=== PATIENT | male | born 1970 | race Caucasian/White ===

== ENCOUNTER 2019-03-02 20:08 | Emergency (ER) | payer MEDICAID ==
[~2019-03-02] VITALS: Ht 177.8 cm; Wt 86.0 kg
[~2019-03-02 20:08] MED LIST: ATOR20TA PO; DIVA250T4 PO; FURO-151 PO; HYDR-3927 PO; INSU100V3 SQ; INSULIN 70/30; LOSA25TA3 PO; METO5SOL19 PO; MULT-1146 PO; NPH,100V SQ; OMEP40CA PO; TRAM150C25 PO; [UNRECOGNIZED DRUG - MIXTURE] SUBCUT
[2019-03-03] MEDS ORDERED: SODIUM CHLORIDE 0.9% 1,000 ML IV ONE (01:42)
[2019-03-03] MEDS ORDERED: KETOROLAC 30MG/ML VIAL IV STA (01:42)
[2019-03-03 01:52] LABS: CHLORIDE 93 mEq/L (98-107)
[2019-03-03 01:57] LABS: EOSINOPHILS % 1.3 % (0.0-5.0); HEMATOCRIT. 37.6 % (42.0-52.0); HEMOGLOBIN. 13.3 g/dL (14.0-18.0); LYMPHOCYTES % 23.9 % (20.0-50.0); MEAN CORPUSCULAR HEMOGLOBIN 31.6 pg (28.0-32.0); MEAN CORPUSCULAR VOLUME 89.5 fL (80.0-94.0); MEAN PLATELET VOLUME 8.6 fl (7.4-10.4); MONOCYTES % 9.6 % (2.0-8.0); NEUTROPHILS % 64.2 % (40.0-76.0); PLATELET 175 x1000/uL (130-400); RED CELL DISTRIBUTION WIDTH 14.1 % (11.6-14.6)
[2019-03-03] MEDS ORDERED: HYDROCODONE/ACETAMINOPHEN 5/325MG TABLET PO ONE (04:00)
[2019-03-03 05:57] VITALS: BP 147/45
== END 2019-03-03 06:04 | disposition home or self-care (01) ==
LOC: ER 20:08
DX: L97.529 Non-pressure chronic ulcer of other part of left foot with unspecified severity (principal); E11.9 Type 2 diabetes mellitus without complications; I10 Essential (primary) hypertension; Z98.890 Other specified postprocedural states; Z79.4 Long term (current) use of insulin; Z79.899 Other long term (current) drug therapy
CPT/HCPCS: 36415; 71045; 73620; 80053; 83605; 84484; 85025; 87040; 93005; 96374; 99284; J1885; J7030; Z7610

== ENCOUNTER 2020-07-20 19:33 | Inpatient (IN) | payer MEDICAID ==
[~2020-07-20] VITALS: Ht 175.3 cm; Wt 79.9 kg
[2020-07-20] MEDS ORDERED: ACETAMINOPHEN 325MG TABLET PO PRN (19:45)
[2020-07-20] MEDS ORDERED: GLUCAGON,HUMAN RECOMBINANT 1MG/VIAL IM PRN (19:45)
[2020-07-20] MEDS ORDERED: ONDANSETRON HCL 4MG/2ML INJ IV PRN (19:45)
[2020-07-20] MEDS ORDERED: HYDRALAZINE 20MG/ML VIAL IV PRN (19:45)
[2020-07-20] MEDS ORDERED: DEXTROSE 50% WATER 50ML SYRINGE IV PRN ×3 (19:45)
[2020-07-20 20:00] VITALS: BP 140/71
[2020-07-20] MEDS: INSULIN LISPRO 100 UNITS/ML SUBCUT SCH (21:00)
[2020-07-20] MEDS ORDERED: BLOOD SUGAR DIAGNOSTIC STRIP TEST SCH (21:00)
[2020-07-20] MEDS ORDERED: ATORVASTATIN CALCIUM 40MG TABLET PO SCH (21:00)
[2020-07-20] MEDS: DIPHENHYDRAMINE 50MG/ML VIAL IV PRN (21:02)
[2020-07-20] MEDS: METOPROLOL TARTRATE 25MG TABLET PO SCH (21:02)
[2020-07-20] MEDS: BLOOD SUGAR DIAGNOSTIC STRIP TEST SCH (21:02)
[2020-07-20] MEDS ORDERED: MAGNESIUM/ALUMINUM HYDROXIDE/SIMETHICONE 30ML UDC PO PRN (21:15)
[2020-07-20] MEDS ORDERED: IPRATROPIUM/ALBUTEROL 0.5-3(2.5)MG/3ML NEB NEB PRN (21:15)
[2020-07-20] MEDS ORDERED: GUAIFENESIN 200MG/10ML SUGAR FREE UDC PO PRN (21:15)
[2020-07-20] MEDS ORDERED: LORAZEPAM 0.5MG TABLET PO PRN (21:15)
[2020-07-20] MEDS ORDERED: ZOLPIDEM TARTRATE 5MG TABLET PO PRN (21:15)
[2020-07-20] MEDS ORDERED: NA PHOS,M-B/NA PHOS,DI-BA ENEMA 118ML PR PRN (21:15)
[2020-07-20] MEDS: HYDROMORPHONE HCL/PF 2MG/ML CPJ IV PRN (21:37)
[2020-07-20 21:53] LABS: BASOPHILS % 1.1 % (0.0-2.0); EOSINOPHILS % 3.1 % (0.0-5.0); HEMATOCRIT. 30.4 % (42.0-52.0); HEMOGLOBIN. 10.6 g/dL (14.0-18.0); LYMPHOCYTES % 31.5 % (20.0-50.0); MEAN CORPUSCULAR HEMOGLOBIN 30.6 pg (28.0-32.0); MEAN CORPUSCULAR VOLUME 87.9 fL (80.0-94.0); MEAN PLATELET VOLUME 8.7 fl (7.4-10.4); MONOCYTES % 14.3 % (2.0-8.0); PLATELET 142 x1000/uL (130-400); RED BLOOD CELL COUNT 3.46 mill/uL (4.7-6.1)
[2020-07-20 22:00] VITALS: BP 162/81
[2020-07-20 23:28] VITALS: BP 140/71
[2020-07-21] VITALS (13 sets, daily range): BP systolic 121–151; BP diastolic 43–91
[2020-07-21] MEDS: NITROGLYCERIN 0.4MG TABLET SL SL PRN ×3 (01:06→01:42)
[2020-07-21] MEDS: HYDROMORPHONE HCL/PF 2MG/ML CPJ IV PRN ×2 (02:44→09:00)
[2020-07-21] MEDS: DIPHENHYDRAMINE 50MG/ML VIAL IV PRN ×4 (03:11→23:28)
[2020-07-21] MEDS: HEPARIN 5000 UNITS/ML VIAL SUBCUT SCH ×3 (06:00→22:00)
[2020-07-21 06:30] LABS: PARTIAL THROMBOPLASTIN TIME 30.5 sec (23.4-31.0); PROTHROMBIN TIME 10.9 sec (9.6-11.0)
[2020-07-21] MEDS: INSULIN LISPRO 100 UNITS/ML SUBCUT SCH ×4 (06:37→21:00)
[2020-07-21] MEDS: BLOOD SUGAR DIAGNOSTIC STRIP TEST SCH ×4 (06:37→21:50)
[2020-07-21 07:13] LABS: CREATINE KINASE MB FRACTION 2.1 ng/mL (0.5-3.6)
[2020-07-21 07:20] LABS: EOSINOPHILS % 3.8 % (0.0-5.0); HEMATOCRIT. 28.9 % (42.0-52.0); LYMPHOCYTES % 28.1 % (20.0-50.0); MEAN CORPUSCULAR HEMOGLOBIN 30.6 pg (28.0-32.0); MEAN CORPUSCULAR VOLUME 88.3 fL (80.0-94.0); MEAN PLATELET VOLUME 9.1 fl (7.4-10.4); MONOCYTES % 14.2 % (2.0-8.0); NEUTROPHILS % 52.9 % (40.0-76.0); PLATELET 138 x1000/uL (130-400); RED BLOOD CELL COUNT 3.27 mill/uL (4.7-6.1)
[2020-07-21] MEDS: SEVELAMER CARBONATE 800 MG TABLET PO SCH ×3 (07:20→17:20)
[2020-07-21] MEDS ORDERED: NITROGLYCERIN 50MCG/ML 10ML VIAL (CATH LAB) IV ONE (08:22)
[2020-07-21] MEDS ORDERED: NICARDIPINE 100MCG/ML 10ML VIAL (CATH LAB) IV ONE (08:22)
[2020-07-21] MEDS ORDERED: HEPARIN SODIUM 1,000 UNIT/1ML VIAL IV ONE (08:22)
[2020-07-21] MEDS: ISOSORBIDE MONONITRATE 60MG TABLET SR 24HR PO SCH (08:24)
[2020-07-21] MEDS: ASPIRIN 81MG TABLET PO SCH (08:24)
[2020-07-21] MEDS: CLOPIDOGREL 75MG TABLET PO SCH (08:25)
[2020-07-21] MEDS: DOCUSATE SODIUM 100MG CAPSULE PO SCH ×2 (08:29→17:21)
[2020-07-21] MEDS: METOPROLOL TARTRATE 25MG TABLET PO SCH ×2 (08:29→21:50)
[2020-07-21] MEDS: ASCORBIC ACID 500 MG TABLET PO SCH ×2 (08:30→21:50)
[2020-07-21] MEDS: ZINC SULFATE 220 MG ( 50 ) CAPSULE PO SCH (08:30)
[2020-07-21] MEDS: FAMOTIDINE 20MG TABLET PO SCH (08:30)
[2020-07-21] MEDS ORDERED: FENTANYL CITRATE/PF 50MCG/ML 2ML VIAL ONE (09:36)
[2020-07-21] MEDS ORDERED: IODIXANOL 320MG/ML 100 ML BOTTLE IV ONE (09:36)
[2020-07-21] MEDS ORDERED: MIDAZOLAM HCL 2 MG/2 ML VIAL ONE (09:36)
[2020-07-21] MEDS ORDERED: LIDOCAINE HCL 1% 20ML VIAL (Pyxis) INJ ONE (09:37)
[2020-07-21] MEDS ORDERED: HYDROMORPHONE HCL/PF 2MG/ML CPJ IV PRN (10:00)
[2020-07-21] MEDS ORDERED: ATROPINE SULFATE 1MG/10ML SYR IV PRN (10:15)
[2020-07-21] MEDS ORDERED: ONDANSETRON HCL 4MG/2ML INJ IV PRN (10:15)
[2020-07-21] MEDS ORDERED: ACETAMINOPHEN 325MG TABLET PO PRN ×2 (10:15→10:45)
[2020-07-21] MEDS: ATORVASTATIN CALCIUM 10MG TABLET PO SCH (21:50)
[2020-07-22] VITALS (13 sets, daily range): BP systolic 98–152; BP diastolic 24–106
[2020-07-22] MEDS ORDERED: PNEUMOCOCCAL 23-VAL P-SAC VAC 0.5 ML IM ONE (01:00)
[2020-07-22 06:18] LABS: BASOPHILS % 0.9 % (0.0-2.0); EOSINOPHILS % 4.4 % (0.0-5.0); HEMATOCRIT. 29.2 % (42.0-52.0); LYMPHOCYTES % 25.6 % (20.0-50.0); MEAN CORPUSCULAR HEMOGLOBIN 30.3 pg (28.0-32.0); MEAN CORPUSCULAR VOLUME 88.6 fL (80.0-94.0); MEAN PLATELET VOLUME 8.8 fl (7.4-10.4); MONOCYTES % 11.7 % (2.0-8.0); NEUTROPHILS % 57.4 % (40.0-76.0); PLATELET 142 x1000/uL (130-400); RED CELL DISTRIBUTION WIDTH 13.8 % (11.6-14.6)
[2020-07-22] MEDS: BLOOD SUGAR DIAGNOSTIC STRIP TEST SCH ×4 (06:27→20:24)
[2020-07-22 06:34] LABS: PHOSPHORUS 6.6 mg/dL (2.5-4.9)
[2020-07-22] MEDS: HEPARIN 5000 UNITS/ML VIAL SUBCUT SCH ×3 (06:37→21:18)
[2020-07-22] MEDS: INSULIN LISPRO 100 UNITS/ML SUBCUT SCH ×4 (07:20→20:28)
[2020-07-22] MEDS: ISOSORBIDE MONONITRATE 60MG TABLET SR 24HR PO SCH (08:16)
[2020-07-22] MEDS: METOPROLOL TARTRATE 25MG TABLET PO SCH ×2 (08:16→21:16)
[2020-07-22] MEDS: CLOPIDOGREL 75MG TABLET PO SCH (08:28)
[2020-07-22] MEDS: SEVELAMER CARBONATE 800 MG TABLET PO SCH ×4 (08:28→17:11)
[2020-07-22] MEDS: ZINC SULFATE 220 MG ( 50 ) CAPSULE PO SCH (08:28)
[2020-07-22] MEDS: ASPIRIN 81MG TABLET PO SCH (08:28)
[2020-07-22] MEDS: ASCORBIC ACID 500 MG TABLET PO SCH ×2 (08:29→21:16)
[2020-07-22] MEDS: DIPHENHYDRAMINE 50MG/ML VIAL IV PRN ×2 (08:29→17:05)
[2020-07-22] MEDS: FAMOTIDINE 20MG TABLET PO SCH (10:12)
[2020-07-22] MEDS: METOCLOPRAMIDE HCL 5MG TABLET PO SCH ×3 (13:30→21:17)
[2020-07-22] MEDS: ATORVASTATIN CALCIUM 10MG TABLET PO SCH (21:17)
[2020-07-23] VITALS: BP 141/52
[2020-07-23] MEDS: DIPHENHYDRAMINE 50MG/ML VIAL IV PRN ×2 (00:25→07:02)
[2020-07-23 01:55] VITALS: BP 125/50
[2020-07-23 03:58] VITALS: BP 115/67
[2020-07-23 06:23] LABS: EOSINOPHILS % 3.5 % (0.0-5.0); HEMATOCRIT. 32.1 % (42.0-52.0); HEMOGLOBIN. 10.8 g/dL (14.0-18.0); LYMPHOCYTES % 21.1 % (20.0-50.0); MEAN CORPUSCULAR HEMOGLOBIN 29.9 pg (28.0-32.0); MEAN PLATELET VOLUME 8.8 fl (7.4-10.4); MONOCYTES % 11.7 % (2.0-8.0); NEUTROPHILS % 62.7 % (40.0-76.0); PLATELET 158 x1000/uL (130-400); RED BLOOD CELL COUNT 3.61 mill/uL (4.7-6.1); RED CELL DISTRIBUTION WIDTH 14.4 % (11.6-14.6)
[2020-07-23 06:30] VITALS: BP 145/54
[2020-07-23] MEDS: METOCLOPRAMIDE HCL 5MG TABLET PO SCH (06:30)
[2020-07-23] MEDS: HEPARIN 5000 UNITS/ML VIAL SUBCUT SCH (06:30)
[2020-07-23] MEDS: BLOOD SUGAR DIAGNOSTIC STRIP TEST SCH (06:35)
[2020-07-23 06:47] LABS: PHOSPHORUS 5.6 mg/dL (2.5-4.9)
[2020-07-23] MEDS: INSULIN LISPRO 100 UNITS/ML SUBCUT SCH (07:20)
[2020-07-23] MEDS: SEVELAMER CARBONATE 800 MG TABLET PO SCH (07:40)
[2020-07-23] MEDS: ASCORBIC ACID 500 MG TABLET PO SCH (08:53)
[2020-07-23] MEDS: FAMOTIDINE 20MG TABLET PO SCH (08:53)
[2020-07-23] MEDS: DOCUSATE SODIUM 100MG CAPSULE PO SCH (08:53)
[2020-07-23] MEDS: CLOPIDOGREL 75MG TABLET PO SCH (08:54)
[2020-07-23] MEDS: ASPIRIN 81MG TABLET PO SCH (08:54)
[2020-07-23] MEDS: ISOSORBIDE MONONITRATE 60MG TABLET SR 24HR PO SCH (08:56)
[2020-07-23] MEDS: ZINC SULFATE 220 MG ( 50 ) CAPSULE PO SCH (09:02)
[2020-07-23] MEDS: METOPROLOL TARTRATE 25MG TABLET PO SCH (09:02)
== END 2020-07-23 10:12 | disposition home or self-care (01) | DRG 190 ==
LOC: 3WST 19:33
PROVIDERS: ADMIT Internal Medicine; ATTEND Internal Medicine
PROC: 4A023N7 Measurement of Cardiac Sampling and Pressure, Left Heart, Percutaneous Approach (ICD-10-PCS; principal; 2020-07-21)
PROC: B211YZZ Fluoroscopy of Multiple Coronary Arteries using Other Contrast (ICD-10-PCS; 2020-07-21)
PROC: B215YZZ Fluoroscopy of Left Heart using Other Contrast (ICD-10-PCS; 2020-07-21)
PROC: 5A1D70Z Performance of Urinary Filtration, Intermittent, Less than 6 Hours Per Day (ICD-10-PCS; 2020-07-21)
DX: I21.4 Non-ST elevation (NSTEMI) myocardial infarction (principal); I13.2 Hypertensive heart and chronic kidney disease with heart failure and with stage 5 chronic kidney disease, or end stage renal disease; E11.22 Type 2 diabetes mellitus with diabetic chronic kidney disease; E46 Unspecified protein-calorie malnutrition; I42.9 Cardiomyopathy, unspecified; N18.6 End stage renal disease; E11.51 Type 2 diabetes mellitus with diabetic peripheral angiopathy without gangrene; E87.1 Hypo-osmolality and hyponatremia; I48.0 Paroxysmal atrial fibrillation; D63.8 Anemia in other chronic diseases classified elsewhere; E78.5 Hyperlipidemia, unspecified; I50.9 Heart failure, unspecified; E78.00 Pure hypercholesterolemia, unspecified; I44.0 Atrioventricular block, first degree; I25.110 Atherosclerotic heart disease of native coronary artery with unstable angina pectoris; N25.81 Secondary hyperparathyroidism of renal origin; Z20.822 Contact with and (suspected) exposure to COVID-19; Z68.26 Body mass index [BMI] 26.0-26.9, adult; Z79.899 Other long term (current) drug therapy; Z79.4 Long term (current) use of insulin; I25.2 Old myocardial infarction; Z89.512 Acquired absence of left leg below knee; Z95.5 Presence of coronary angioplasty implant and graft; Z99.2 Dependence on renal dialysis; Z87.891 Personal history of nicotine dependence; Z83.3 Family history of diabetes mellitus; Z82.49 Family history of ischemic heart disease and other diseases of the circulatory system
CPT/HCPCS: 36415; 80048; 80061; 82550; 82553; 82962; 83036; 83735; 84100; 84484; 85025; 87426; 90732; 93005; 93306; 93458; 93970; C1760; C1769; C1887; C1893; J1170; J1200; J1644; J2250; J2405; J3010; J3490; J8597; Q9967

== ENCOUNTER 2020-07-26 14:01 | Emergency (ER) | payer MEDICAID ==
[~2020-07-26] VITALS: Ht 170.2 cm; Wt 86.0 kg
[2020-07-26] MEDS ORDERED: ACETAMINOPHEN 325MG TABLET PO ONE (15:30)
[2020-07-26 15:39] LABS: BASOPHILS % 1.8 % (0.0-2.0); EOSINOPHILS % 5.2 % (0.0-5.0); HEMATOCRIT. 28.2 % (42.0-52.0); HEMOGLOBIN. 10.1 g/dL (14.0-18.0); LYMPHOCYTES % 26.6 % (20.0-50.0); MEAN CORPUSCULAR HEMOGLOBIN 31.2 pg (28.0-32.0); MEAN CORPUSCULAR VOLUME 87.5 fL (80.0-94.0); MEAN PLATELET VOLUME 8.2 fl (7.4-10.4); MONOCYTES % 13.2 % (2.0-8.0); NEUTROPHILS % 53.2 % (40.0-76.0); PLATELET 171 x1000/uL (130-400); RED BLOOD CELL COUNT 3.22 mill/uL (4.7-6.1); RED CELL DISTRIBUTION WIDTH 13.9 % (11.6-14.6)
[2020-07-26 15:47] LABS: CHLORIDE 95 mEq/L (98-107)
[2020-07-26] MEDS ORDERED: HYDROCODONE/ACETAMINOPHEN 10/325MG TABLET PO ONE (16:30)
[2020-07-26 16:45] VITALS: BP 137/68
== END 2020-07-26 16:58 | disposition left against medical advice (07) ==
LOC: ER 14:01
DX: R07.89 Other chest pain (principal); E11.22 Type 2 diabetes mellitus with diabetic chronic kidney disease; N18.6 End stage renal disease; I25.2 Old myocardial infarction; Z98.890 Other specified postprocedural states; Z79.4 Long term (current) use of insulin; Z79.899 Other long term (current) drug therapy
CPT/HCPCS: 36415; 71045; 80053; 83880; 84484; 85025; 93005; 99285

== ENCOUNTER 2021-08-30 14:49 | Inpatient (IN) | payer MEDICAID ==
[~2021-08-30] VITALS: Ht 175.3 cm; Wt 82.6 kg
[~2021-08-30 14:49] MED LIST changes: -LOSA25TA3 PO
[2021-08-30] MEDS ORDERED: ASPIRIN 325MG EC TABLET PO ONE (15:45)
[2021-08-30] MEDS ORDERED: MORPHINE SULFATE 4 MG/ML CPJ (NOT FOR IM USE) IV ONE ×2 (15:45→20:15)
[2021-08-30] MEDS ORDERED: DIPHENHYDRAMINE 50MG/ML VIAL IV ONE (16:15)
[2021-08-30 16:23] LABS: BASOPHILS % 1.2 % (0.0-2.0); EOSINOPHILS % 2.8 % (0.0-5.0); HEMATOCRIT. 32.7 % (42.0-52.0); HEMOGLOBIN. 11.3 g/dL (14.0-18.0); LYMPHOCYTES % 32.3 % (20.0-50.0); MEAN CORPUSCULAR HEMOGLOBIN 30.9 pg (28.0-32.0); MEAN CORPUSCULAR VOLUME 89.1 fL (80.0-94.0); MEAN PLATELET VOLUME 8.4 fl (7.4-10.4); NEUTROPHILS % 49.7 % (40.0-76.0); PLATELET 159 x1000/uL (130-400); RED BLOOD CELL COUNT 3.67 mill/uL (4.7-6.1); RED CELL DISTRIBUTION WIDTH 13.6 % (11.6-14.6)
[2021-08-30 16:33] LABS: CHLORIDE 95 mEq/L (98-107)
[2021-08-30] MEDS ORDERED: FUROSEMIDE 20MG/2ML VIAL IVP ONE (19:00)
[2021-08-30] MEDS ORDERED: CLONIDINE 0.1MG TABLET PO PRN (21:15)
[2021-08-30] MEDS ORDERED: ACETAMINOPHEN 325MG TABLET PO PRN ×2 (21:15)
[2021-08-30] MEDS ORDERED: NITROGLYCERIN 0.4MG TABLET SL SL PRN (21:15)
[2021-08-30] MEDS ORDERED: ONDANSETRON HCL 4MG/2ML INJ IV PRN (21:15)
[2021-08-30] MEDS ORDERED: GUAIFENESIN 200MG/10ML SUGAR FREE UDC PO PRN (21:15)
[2021-08-30] MEDS ORDERED: DEXTROSE 50% WATER 50ML SYRINGE IV PRN (21:15)
[2021-08-30] MEDS ORDERED: MAGNESIUM/ALUMINUM HYDROXIDE/SIMETHICONE 30ML UDC PO PRN (21:15)
[2021-08-30] MEDS ORDERED: IPRATROPIUM/ALBUTEROL 0.5-3(2.5)MG/3ML NEB NEB PRN (21:15)
[2021-08-30] MEDS ORDERED: ZOLPIDEM TARTRATE 5MG TABLET PO PRN (21:15)
[2021-08-30] MEDS ORDERED: NALOXONE HCL 0.4MG/ML VIAL IV PRN (21:30)
[2021-08-30] MEDS: DIPHENHYDRAMINE 50MG/ML VIAL IV PRN (22:06)
[2021-08-30] MEDS: ENOXAPARIN 30MG/0.3ML SYR SUBCUT SCH (22:26)
[2021-08-30 23:29] LABS: ETHANOL BLOOD < 10 mg/dL; HDL CHOLESTEROL 33 mg/dL (40-59); LDL CHOLESTEROL 99 mg/dL (5-100)
[2021-08-30 23:35] LABS: CREATINE KINASE MB FRACTION 2.2 ng/mL (0.5-3.6)
[2021-08-31 00:20] VITALS: BP 160/47
[2021-08-31] MEDS: DIPHENHYDRAMINE 50MG/ML VIAL IV PRN ×5 (00:59→22:07)
[2021-08-31] MEDS: TRAMADOL 50MG TABLET PO PRN (05:47)
[2021-08-31] MEDS: BLOOD SUGAR DIAGNOSTIC STRIP TEST SCH ×4 (07:20→21:00)
[2021-08-31] MEDS: INSULIN LISPRO 100 UNITS/ML SUBCUT SCH ×4 (07:50→21:00)
[2021-08-31 08:00] VITALS: BP 149/60
[2021-08-31] MEDS: FAMOTIDINE 20MG TABLET PO SCH (08:38)
[2021-08-31] MEDS: CLOPIDOGREL 75MG TABLET PO SCH (08:38)
[2021-08-31] MEDS: SEVELAMER CARBONATE 800 MG TABLET PO SCH ×3 (08:38→17:58)
[2021-08-31] MEDS: METOPROLOL TARTRATE 25MG TABLET PO SCH ×2 (08:39→21:00)
[2021-08-31] MEDS: ASPIRIN 81MG EC TABLET PO SCH (08:39)
[2021-08-31 11:56] VITALS: BP 164/60
[2021-08-31 15:49] VITALS: BP 132/78
[2021-08-31 18:34] LABS: HEPATITIS B SURFACE ANTIGEN NEGATIVE
[2021-08-31 20:00] VITALS: BP 150/42
[2021-08-31] MEDS: ATORVASTATIN CALCIUM 10MG TABLET PO SCH (22:08)
[2021-08-31] MEDS: ENOXAPARIN 30MG/0.3ML SYR SUBCUT SCH (22:08)
[2021-09-01] VITALS: BP 112/50
[2021-09-01] MEDS: DIPHENHYDRAMINE 50MG/ML VIAL IV PRN ×5 (01:58→21:51)
[2021-09-01 04:00] VITALS: BP_SYST 159; BP_SYST 98; BP_DIAS 51; BP_DIAS 57
[2021-09-01] MEDS: BLOOD SUGAR DIAGNOSTIC STRIP TEST SCH ×4 (05:12→21:51)
[2021-09-01 07:54] VITALS: BP 145/62
[2021-09-01] MEDS: ASPIRIN 81MG EC TABLET PO SCH (08:24)
[2021-09-01] MEDS: SEVELAMER CARBONATE 800 MG TABLET PO SCH ×3 (08:24→17:37)
[2021-09-01] MEDS: CLOPIDOGREL 75MG TABLET PO SCH (08:24)
[2021-09-01] MEDS: METOPROLOL TARTRATE 25MG TABLET PO SCH ×2 (08:24→21:50)
[2021-09-01] MEDS: FAMOTIDINE 20MG TABLET PO SCH (08:24)
[2021-09-01] MEDS: INSULIN LISPRO 100 UNITS/ML SUBCUT SCH ×4 (08:27→21:53)
[2021-09-01] MEDS: DOCUSATE SODIUM 100MG CAPSULE PO PRN (10:02)
[2021-09-01 11:45] VITALS: BP 158/89
[2021-09-01 16:00] VITALS: BP 120/64
[2021-09-01 20:00] VITALS: BP 186/50
[2021-09-01] MEDS: ATORVASTATIN CALCIUM 10MG TABLET PO SCH (21:50)
[2021-09-01] MEDS: ENOXAPARIN 30MG/0.3ML SYR SUBCUT SCH (21:51)
[2021-09-02] VITALS (7 sets, daily range): BP systolic 120–158; BP diastolic 46–98
[2021-09-02] MEDS: DIPHENHYDRAMINE 50MG/ML VIAL IV PRN ×5 (01:57→20:06)
[2021-09-02] MEDS: BLOOD SUGAR DIAGNOSTIC STRIP TEST SCH ×4 (06:02→20:06)
[2021-09-02] MEDS: INSULIN LISPRO 100 UNITS/ML SUBCUT SCH ×4 (07:50→21:00)
[2021-09-02] MEDS: SEVELAMER CARBONATE 800 MG TABLET PO SCH ×4 (08:41→17:50)
[2021-09-02] MEDS: FAMOTIDINE 20MG TABLET PO SCH (08:41)
[2021-09-02] MEDS: ASPIRIN 81MG EC TABLET PO SCH (08:41)
[2021-09-02] MEDS: METOPROLOL TARTRATE 25MG TABLET PO SCH ×2 (08:41→20:06)
[2021-09-02] MEDS: CLOPIDOGREL 75MG TABLET PO SCH (08:41)
[2021-09-02] MEDS ORDERED: NA PHOS,M-B/NA PHOS,DI-BA ENEMA 118ML PR NR (15:00)
[2021-09-02] MEDS ORDERED: LACTULOSE 20G/30ML UDC PO NR (15:00)
[2021-09-02] MEDS: DOCUSATE SODIUM 100MG CAPSULE PO PRN (17:32)
[2021-09-02] MEDS: ATORVASTATIN CALCIUM 10MG TABLET PO SCH (20:06)
[2021-09-02] MEDS: ENOXAPARIN 30MG/0.3ML SYR SUBCUT SCH (22:12)
[2021-09-02] MEDS: TRAMADOL 50MG TABLET PO PRN (23:59)
[2021-09-03] VITALS: BP 178/58
[2021-09-03] MEDS: DIPHENHYDRAMINE 50MG/ML VIAL IV PRN ×2 (00:17→04:18)
[2021-09-03 04:00] VITALS: BP 190/42
[2021-09-03] MEDS: BLOOD SUGAR DIAGNOSTIC STRIP TEST SCH (06:01)
[2021-09-03] MEDS: INSULIN LISPRO 100 UNITS/ML SUBCUT SCH (07:28)
[2021-09-03 08:00] VITALS: BP 141/43
[2021-09-03 09:25] VITALS: BP 154/48
[2021-09-03] MEDS: METOPROLOL TARTRATE 25MG TABLET PO SCH (09:26)
[2021-09-03] MEDS: CLOPIDOGREL 75MG TABLET PO SCH (09:26)
[2021-09-03] MEDS: ASPIRIN 81MG EC TABLET PO SCH (09:26)
[2021-09-03] MEDS: SEVELAMER CARBONATE 800 MG TABLET PO SCH (09:26)
[2021-09-03] MEDS: FAMOTIDINE 20MG TABLET PO SCH (09:27)
[2021-09-03 12:00] VITALS: BP 103/65
== END 2021-09-03 18:08 | disposition home or self-care (01) | DRG 203 ==
LOC: ER 14:49 → 6WST 20:04 → ENRESERV 23:02 → ER 08-31 00:09 → 6WST 08-31 00:20
PROVIDERS: ADMIT Internal Medicine; ATTEND Internal Medicine
PROC: 0JBP0ZZ Excision of Left Lower Leg Subcutaneous Tissue and Fascia, Open Approach (ICD-10-PCS; principal; 2021-08-31)
PROC: 5A1D70Z Performance of Urinary Filtration, Intermittent, Less than 6 Hours Per Day (ICD-10-PCS; 2021-08-31)
DX: M94.0 Chondrocostal junction syndrome [Tietze] (principal); I50.43 Acute on chronic combined systolic (congestive) and diastolic (congestive) heart failure; I42.9 Cardiomyopathy, unspecified; N18.6 End stage renal disease; E87.1 Hypo-osmolality and hyponatremia; D63.1 Anemia in chronic kidney disease; I13.2 Hypertensive heart and chronic kidney disease with heart failure and with stage 5 chronic kidney disease, or end stage renal disease; I25.10 Atherosclerotic heart disease of native coronary artery without angina pectoris; S81.802A Unspecified open wound, left lower leg, initial encounter; K21.9 Gastro-esophageal reflux disease without esophagitis; E11.22 Type 2 diabetes mellitus with diabetic chronic kidney disease; E78.5 Hyperlipidemia, unspecified; Z99.2 Dependence on renal dialysis; I25.2 Old myocardial infarction; Z79.899 Other long term (current) drug therapy; Z89.512 Acquired absence of left leg below knee; X58.XXXA Exposure to other specified factors, initial encounter; Y93.89 Activity, other specified; Y92.89 Other specified places as the place of occurrence of the external cause; Y99.8 Other external cause status; Z91.15 Patient's noncompliance with renal dialysis
CPT/HCPCS: 36415; 71045; 80053; 80061; 80320; 82550; 82553; 82962; 83036; 83605; 83880; 84484; 85025; 86705; 86709; 86803; 87340; 93005; 99285; J1200; J1650; J1815; J1940; J2270; J2405; G0480

== ENCOUNTER 2021-10-19 14:44 | Inpatient (IN) | payer MEDICAID ==
[~2021-10-19] VITALS: Ht 175.3 cm; Wt 82.7 kg
[~2021-10-19 14:44] MED LIST changes: +ASPI-1406 PO; +CLOP75TA15 PO; +FURO40TA5 PO
[2021-10-19 16:51] VITALS: BP 160/78
[2021-10-19] MEDS ORDERED: GUAIFENESIN 200MG/10ML SUGAR FREE UDC PO PRN (17:00)
[2021-10-19] MEDS ORDERED: ACETAMINOPHEN 325MG TABLET PO PRN (17:00)
[2021-10-19] MEDS ORDERED: DEXTROSE 50% WATER 50ML SYRINGE IV PRN (17:00)
[2021-10-19] MEDS ORDERED: MAGNESIUM/ALUMINUM HYDROXIDE/SIMETHICONE 30ML UDC PO PRN (17:00)
[2021-10-19] MEDS ORDERED: IPRATROPIUM/ALBUTEROL 0.5-3(2.5)MG/3ML NEB HHN PRN (17:00)
[2021-10-19] MEDS ORDERED: LORAZEPAM 0.5MG TABLET PO PRN (17:00)
[2021-10-19] MEDS ORDERED: CLONIDINE 0.1MG TABLET PO PRN (17:00)
[2021-10-19] MEDS ORDERED: DIPHENHYDRAMINE 50MG/ML VIAL IV PRN (17:30)
[2021-10-19] MEDS: BLOOD SUGAR DIAGNOSTIC STRIP TEST SCH ×2 (17:38→21:47)
[2021-10-19] MEDS: ONDANSETRON HCL 4MG/2ML INJ IV PRN ×2 (17:45→23:13)
[2021-10-19] MEDS: INSULIN LISPRO 100 UNITS/ML SUBCUT SCH ×2 (17:46→21:38)
[2021-10-19] MEDS: MORPHINE SULFATE 2 MG/ML CPJ (NOT FOR IM USE) IV PRN ×2 (17:46→23:14)
[2021-10-19 18:02] VITALS: BP 155/68
[2021-10-19] MEDS: DIPHENHYDRAMINE 50MG/ML VIAL IV PRN ×2 (18:37→23:14)
[2021-10-19 20:00] VITALS: BP 130/44
[2021-10-19] MEDS: INSULIN GLARGINE 100 UNITS/ML SUBCUT SCH (21:37)
[2021-10-19] MEDS: ATORVASTATIN CALCIUM 20MG TABLET PO SCH (21:46)
[2021-10-19] MEDS: AMLODIPINE 5MG TABLET PO SCH (21:46)
[2021-10-19] MEDS: CARVEDILOL 6.25 MG TABLET PO SCH (21:46)
[2021-10-19] MEDS: NITROGLYCERIN OINT 1GM/INCH UDPKT TD SCH (21:46)
[2021-10-19 21:57] LABS: HEMATOCRIT 24.7 % (42.0-52.0); HEMOGLOBIN 8.5 g/dL (14.0-18.0); MEAN CORPUSCULAR HEMOGLOBIN 31.3 pg (28.0-32.0); MEAN CORPUSCULAR VOLUME 90.9 fL (80.0-94.0); PLATELET 124 x1000/uL (130-400); RED BLOOD CELL COUNT 2.71 mill/uL (4.7-6.1); RED CELL DISTRIBUTION WIDTH 13.5 % (11.6-14.6)
[2021-10-19 22:00] VITALS: BP 92/69
[2021-10-19 22:14] LABS: CHLORIDE 99 mEq/L (98-107)
[2021-10-19 22:39] LABS: HEPATITIS B SURFACE ANTIGEN NEGATIVE
[2021-10-20] VITALS (17 sets, daily range): BP systolic 74–164; BP diastolic 32–84
[2021-10-20] MEDS: DIPHENHYDRAMINE 50MG/ML VIAL IV PRN ×5 (04:14→22:02)
[2021-10-20] MEDS: NITROGLYCERIN OINT 1GM/INCH UDPKT TD SCH ×4 (04:14→22:12)
[2021-10-20] MEDS: MORPHINE SULFATE 2 MG/ML CPJ (NOT FOR IM USE) IV PRN ×5 (04:15→22:03)
[2021-10-20] MEDS: INSULIN LISPRO 100 UNITS/ML SUBCUT SCH ×4 (07:10→20:34)
[2021-10-20] MEDS: BLOOD SUGAR DIAGNOSTIC STRIP TEST SCH ×4 (07:10→20:34)
[2021-10-20] MEDS: ONDANSETRON HCL 4MG/2ML INJ IV PRN ×2 (08:09→18:01)
[2021-10-20] MEDS: AMLODIPINE 5MG TABLET PO SCH ×2 (08:09→20:34)
[2021-10-20] MEDS: ASPIRIN 81MG EC TABLET PO SCH (08:09)
[2021-10-20] MEDS: CARVEDILOL 6.25 MG TABLET PO SCH ×2 (08:10→20:33)
[2021-10-20] MEDS: CLOPIDOGREL 75MG TABLET PO SCH (08:10)
[2021-10-20] MEDS ORDERED: ENOXAPARIN 30MG/0.3ML SYR SUBCUT SCH (09:00)
[2021-10-20] MEDS: INSULIN GLARGINE 100 UNITS/ML SUBCUT SCH ×2 (11:10→22:16)
[2021-10-20 13:23] LABS: TOTAL IRON BINDING CAPACITY 207 ug/dL (250-450)
[2021-10-20] MEDS: PANTOPRAZOLE SODIUM 40 MG/VIAL IV SCH ×2 (13:42→23:08)
[2021-10-20 15:44] LABS: FOLIC ACID (FOLATE) SERUM 10.8 ng/mL (>5.38)
[2021-10-20 20:32] LABS: HEMATOCRIT 30.9 % (42.0-52.0); HEMOGLOBIN 10.4 g/dL (14.0-18.0)
[2021-10-20] MEDS: ATORVASTATIN CALCIUM 20MG TABLET PO SCH (20:34)
[2021-10-20] MEDS ORDERED: EPOETIN ALFA-EPBX 4,000 UNIT/ML VIAL SUBCUT SCH (21:00)
[2021-10-21] VITALS (12 sets, daily range): BP systolic 108–149; BP diastolic 33–84
[2021-10-21] MEDS: MORPHINE SULFATE 2 MG/ML CPJ (NOT FOR IM USE) IV PRN ×2 (02:17→06:41)
[2021-10-21] MEDS: DIPHENHYDRAMINE 50MG/ML VIAL IV PRN ×2 (02:17→06:37)
[2021-10-21 06:24] LABS: HEMATOCRIT. 29.4 % (42.0-52.0); MEAN CORPUSCULAR HEMOGLOBIN 31.1 pg (28.0-32.0); MEAN CORPUSCULAR VOLUME 91.9 fL (80.0-94.0); MEAN PLATELET VOLUME 8.8 fl (7.4-10.4); PLATELET 120 x1000/uL (130-400); RED BLOOD CELL COUNT 3.21 mill/uL (4.7-6.1); RED CELL DISTRIBUTION WIDTH 13.6 % (11.6-14.6)
[2021-10-21] MEDS: NITROGLYCERIN OINT 1GM/INCH UDPKT TD SCH ×3 (06:40→22:00)
[2021-10-21] MEDS: BLOOD SUGAR DIAGNOSTIC STRIP TEST SCH ×4 (06:41→21:00)
[2021-10-21] MEDS: INSULIN LISPRO 100 UNITS/ML SUBCUT SCH ×4 (08:00→21:00)
[2021-10-21] MEDS: ASPIRIN 81MG EC TABLET PO SCH (08:36)
[2021-10-21] MEDS: PANTOPRAZOLE SODIUM 40 MG/VIAL IV SCH ×2 (08:36→22:52)
[2021-10-21] MEDS: CARVEDILOL 6.25 MG TABLET PO SCH ×2 (08:40→21:00)
[2021-10-21] MEDS: CLOPIDOGREL 75MG TABLET PO SCH (08:40)
[2021-10-21] MEDS: AMLODIPINE 5MG TABLET PO SCH ×2 (08:40→22:55)
[2021-10-21] MEDS: INSULIN GLARGINE 100 UNITS/ML SUBCUT SCH ×2 (10:00→21:05)
[2021-10-21] MEDS ORDERED: NALOXONE HCL 0.4MG/ML VIAL IV PRN (11:00)
[2021-10-21] MEDS: DIPHENHYDRAMINE 50MG CAPSULE PO PRN ×2 (11:17→17:52)
[2021-10-21 13:08] LABS: HEMATOCRIT 27.2 % (42.0-52.0); HEMOGLOBIN 9.3 g/dL (14.0-18.0)
[2021-10-21] MEDS: SEVELAMER CARBONATE 800 MG TABLET PO SCH ×2 (13:24→17:54)
[2021-10-21] MEDS: ONDANSETRON HCL 4MG/2ML INJ IV PRN (17:54)
[2021-10-21 19:04] LABS: PLATELET ESTIMATE NORMAL
[2021-10-21 20:38] LABS: HEMATOCRIT 31.3 % (42.0-52.0); HEMOGLOBIN 10.5 g/dL (14.0-18.0)
[2021-10-21] MEDS: HYDROCODONE/ACETAMINOPHEN 5/325MG TABLET PO PRN (20:59)
[2021-10-21] MEDS: ATORVASTATIN CALCIUM 20MG TABLET PO SCH (21:00)
[2021-10-22] VITALS (11 sets, daily range): BP systolic 88–156; BP diastolic 30–94
[2021-10-22] MEDS: DIPHENHYDRAMINE 50MG CAPSULE PO PRN ×2 (01:17→19:36)
[2021-10-22] MEDS: NITROGLYCERIN OINT 1GM/INCH UDPKT TD SCH ×3 (06:00→22:00)
[2021-10-22 06:02] LABS: BASOPHILS % 0.8 % (0.0-2.0); EOSINOPHILS % 4.4 % (0.0-5.0); HEMATOCRIT. 27.6 % (42.0-52.0); HEMOGLOBIN. 9.5 g/dL (14.0-18.0); LYMPHOCYTES % 19.1 % (20.0-50.0); MEAN CORPUSCULAR HEMOGLOBIN 31.5 pg (28.0-32.0); MEAN CORPUSCULAR VOLUME 91.7 fL (80.0-94.0); MEAN PLATELET VOLUME 8.7 fl (7.4-10.4); MONOCYTES % 11.8 % (2.0-8.0); NEUTROPHILS % 63.9 % (40.0-76.0); PLATELET 123 x1000/uL (130-400); RED BLOOD CELL COUNT 3.01 mill/uL (4.7-6.1); RED CELL DISTRIBUTION WIDTH 13.3 % (11.6-14.6)
[2021-10-22 06:16] LABS: CHLORIDE 100 mEq/L (98-107)
[2021-10-22 06:17] LABS: PROTHROMBIN TIME 10.9 sec (9.6-11.0)
[2021-10-22] MEDS: BLOOD SUGAR DIAGNOSTIC STRIP TEST SCH ×4 (07:30→21:37)
[2021-10-22] MEDS: SEVELAMER CARBONATE 800 MG TABLET PO SCH ×4 (08:00→16:58)
[2021-10-22] MEDS: INSULIN LISPRO 100 UNITS/ML SUBCUT SCH ×4 (08:00→21:00)
[2021-10-22] MEDS: AMLODIPINE 5MG TABLET PO SCH ×2 (09:00→21:00)
[2021-10-22] MEDS: CARVEDILOL 6.25 MG TABLET PO SCH ×2 (09:00→21:00)
[2021-10-22] MEDS: CLOPIDOGREL 75MG TABLET PO SCH ×2 (09:00→21:35)
[2021-10-22] MEDS: ASPIRIN 81MG EC TABLET PO SCH (09:00)
[2021-10-22] MEDS: INSULIN GLARGINE 100 UNITS/ML SUBCUT SCH ×2 (10:00→21:51)
[2021-10-22] MEDS: PANTOPRAZOLE SODIUM 40 MG/VIAL IV SCH ×2 (10:15→21:35)
[2021-10-22] MEDS ORDERED: DIPHENHYDRAMINE 50MG/ML VIAL IV NR (11:15)
[2021-10-22] MEDS ORDERED: PROPOFOL 200MG/20ML VIAL IV ONE (12:52)
[2021-10-22] MEDS ORDERED: MIDAZOLAM HCL 2 MG/2 ML VIAL ONE (12:52)
[2021-10-22] MEDS ORDERED: ONDANSETRON HCL 4MG/2ML INJ ONE (12:55)
[2021-10-22] MEDS ORDERED: DEXAMETHASONE 4MG/ML 1ML VIAL ONE (12:55)
[2021-10-22] MEDS: HYDROCODONE/ACETAMINOPHEN 5/325MG TABLET PO PRN (16:55)
[2021-10-22] MEDS: ATORVASTATIN CALCIUM 20MG TABLET PO SCH (21:33)
[2021-10-22] MEDS: DOCUSATE SODIUM 100MG CAPSULE PO PRN (21:33)
[2021-10-23] VITALS (10 sets, daily range): BP systolic 91–151; BP diastolic 19–78
[2021-10-23] MEDS: BLOOD SUGAR DIAGNOSTIC STRIP TEST SCH ×2 (05:55→12:44)
[2021-10-23] MEDS: NITROGLYCERIN OINT 1GM/INCH UDPKT TD SCH ×2 (05:55→14:39)
[2021-10-23 06:24] LABS: BASOPHILS % 0.5 % (0.0-2.0); EOSINOPHILS % 0.1 % (0.0-5.0); HEMATOCRIT. 26.9 % (42.0-52.0); HEMOGLOBIN. 9.2 g/dL (14.0-18.0); LYMPHOCYTES % 12.1 % (20.0-50.0); MEAN CORPUSCULAR VOLUME 90.8 fL (80.0-94.0); MEAN PLATELET VOLUME 9.2 fl (7.4-10.4); NEUTROPHILS % 78.3 % (40.0-76.0); PLATELET 149 x1000/uL (130-400); RED BLOOD CELL COUNT 2.97 mill/uL (4.7-6.1); RED CELL DISTRIBUTION WIDTH 13.2 % (11.6-14.6)
[2021-10-23] MEDS: INSULIN LISPRO 100 UNITS/ML SUBCUT SCH ×2 (08:00→12:53)
[2021-10-23] MEDS: AMLODIPINE 5MG TABLET PO SCH (09:00)
[2021-10-23] MEDS: CARVEDILOL 6.25 MG TABLET PO SCH (09:00)
[2021-10-23] MEDS: ASPIRIN 81MG EC TABLET PO SCH (09:13)
[2021-10-23] MEDS: SEVELAMER CARBONATE 800 MG TABLET PO SCH ×2 (09:13→12:51)
[2021-10-23] MEDS: PANTOPRAZOLE SODIUM 40 MG/VIAL IV SCH (09:13)
[2021-10-23] MEDS: CLOPIDOGREL 75MG TABLET PO SCH (09:13)
[2021-10-23] MEDS: DOCUSATE SODIUM 100MG CAPSULE PO PRN (09:22)
[2021-10-23] MEDS: INSULIN GLARGINE 100 UNITS/ML SUBCUT SCH (09:25)
[2021-10-23] MEDS ORDERED: DIPHENHYDRAMINE 50MG/ML VIAL IV PRN (10:30)
[2021-10-23] MEDS: DIPHENHYDRAMINE 50MG CAPSULE PO PRN (15:54)
== END 2021-10-23 18:00 | disposition home or self-care (01) | DRG 241 ==
LOC: 5EST 16:21
PROVIDERS: ADMIT Family Medicine Adult Medicine; ATTEND Family Medicine Adult Medicine
PROC: 30233N1 Transfusion of Nonautologous Red Blood Cells into Peripheral Vein, Percutaneous Approach (ICD-10-PCS; 2021-10-21)
PROC: 0DB78ZX Excision of Stomach, Pylorus, Via Natural or Artificial Opening Endoscopic, Diagnostic (ICD-10-PCS; principal; 2021-10-22)
DX: K29.71 Gastritis, unspecified, with bleeding (principal); I50.23 Acute on chronic systolic (congestive) heart failure; I42.9 Cardiomyopathy, unspecified; N18.6 End stage renal disease; E44.1 Mild protein-calorie malnutrition; E87.1 Hypo-osmolality and hyponatremia; D63.8 Anemia in other chronic diseases classified elsewhere; E11.22 Type 2 diabetes mellitus with diabetic chronic kidney disease; D72.819 Decreased white blood cell count, unspecified; K31.84 Gastroparesis; K92.0 Hematemesis; K44.9 Diaphragmatic hernia without obstruction or gangrene; E78.5 Hyperlipidemia, unspecified; E11.51 Type 2 diabetes mellitus with diabetic peripheral angiopathy without gangrene; E11.43 Type 2 diabetes mellitus with diabetic autonomic (poly)neuropathy; I48.0 Paroxysmal atrial fibrillation; I25.10 Atherosclerotic heart disease of native coronary artery without angina pectoris; Z20.828 Contact with and (suspected) exposure to other viral communicable diseases; Z79.01 Long term (current) use of anticoagulants; I25.2 Old myocardial infarction; Z99.2 Dependence on renal dialysis; Z95.5 Presence of coronary angioplasty implant and graft; Z89.511 Acquired absence of right leg below knee; Z89.512 Acquired absence of left leg below knee; Z86.73 Personal history of transient ischemic attack (TIA), and cerebral infarction without residual deficits; I13.2 Hypertensive heart and chronic kidney disease with heart failure and with stage 5 chronic kidney disease, or end stage renal disease
CPT/HCPCS: 36415; 71045; 80048; 80053; 82550; 82607; 82728; 82746; 82962; 83036; 83540; 83550; 84443; 84484; 85014; 85018; 85025; 85027; 85044; 86705; 86709; 86803; 86850; 86900; 86920; 87340; 87426; 88305; 88312; 88313; 93005; A6261; C9113; J0885; J1100; J1200; J1650; J1815; J2250; J2270; J2405; J2704; P9016; Q0163

== ENCOUNTER 2021-10-28 11:32 | Inpatient (IN) | payer MEDICAID ==
[~2021-10-28] VITALS: Ht 154.3 cm; Wt 80.5 kg
[2021-10-28] MEDS ORDERED: ONDANSETRON HCL 4MG/2ML INJ IV STA (11:45)
[2021-10-28] MEDS ORDERED: VISCOUS LIDOCAINE 2% 15 ML UDC MM STA (13:43)
[2021-10-28] MEDS ORDERED: MORPHINE SULFATE 4 MG/ML CPJ (NOT FOR IM USE) IV ONE (13:45)
[2021-10-28] MEDS ORDERED: PANTOPRAZOLE SODIUM 40 MG/VIAL IV ONE (13:45)
[2021-10-28] MEDS ORDERED: MAGNESIUM/ALUMINUM HYDROXIDE/SIMETHICONE 30ML UDC PO ONE (13:45)
[2021-10-28 14:23] LABS: BASOPHILS % 0.8 % (0.0-2.0); CHLORIDE 98 mEq/L (98-107); EOSINOPHILS % 2.8 % (0.0-5.0); HEMATOCRIT. 27.9 % (42.0-52.0); HEMOGLOBIN. 9.5 g/dL (14.0-18.0); LYMPHOCYTES % 22.1 % (20.0-50.0); MEAN CORPUSCULAR HEMOGLOBIN 31.2 pg (28.0-32.0); MEAN CORPUSCULAR VOLUME 91.9 fL (80.0-94.0); MONOCYTES % 9.3 % (2.0-8.0); PLATELET 187 x1000/uL (130-400); RED BLOOD CELL COUNT 3.04 mill/uL (4.7-6.1); RED CELL DISTRIBUTION WIDTH 13.6 % (11.6-14.6)
[2021-10-28 16:00] VITALS: BP 187/75
[2021-10-28 16:56] LABS: HEPATITIS B SURFACE ANTIGEN NEGATIVE
[2021-10-28] MEDS: DIPHENHYDRAMINE 50MG/ML VIAL IM PRN ×3 (17:17→23:53)
[2021-10-28 17:50] VITALS: BP 185/75
[2021-10-28 20:00] VITALS: BP 153/54
[2021-10-28] MEDS: INSULIN LISPRO 100 UNITS/ML SUBCUT SCH (22:00)
[2021-10-28] MEDS ORDERED: DEXTROSE 50% WATER 50ML SYRINGE IV PRN (22:00)
[2021-10-28] MEDS ORDERED: ATORVASTATIN CALCIUM 20MG TABLET PO SCH (22:00)
[2021-10-28] MEDS: BLOOD SUGAR DIAGNOSTIC STRIP TEST SCH (22:18)
[2021-10-28] MEDS ORDERED: IPRATROPIUM/ALBUTEROL 0.5-3(2.5)MG/3ML NEB NEB PRN (23:30)
[2021-10-28] MEDS: MORPHINE SULFATE 2 MG/ML CPJ (NOT FOR IM USE) IV PRN (23:43)
[2021-10-28] MEDS: LISINOPRIL 10MG TABLET PO SCH (23:43)
[2021-10-29] VITALS: BP 162/64
[2021-10-29] MEDS: MORPHINE SULFATE 2 MG/ML CPJ (NOT FOR IM USE) IV PRN ×2 (03:59→09:27)
[2021-10-29 04:00] VITALS: BP 149/59
[2021-10-29] MEDS: DIPHENHYDRAMINE 50MG/ML VIAL IM PRN (06:06)
[2021-10-29] MEDS: BLOOD SUGAR DIAGNOSTIC STRIP TEST SCH ×3 (06:29→17:20)
[2021-10-29] MEDS: INSULIN LISPRO 100 UNITS/ML SUBCUT SCH ×3 (06:53→17:50)
[2021-10-29 08:00] VITALS: BP 144/54
[2021-10-29] MEDS: ENOXAPARIN 30MG/0.3ML SYR SUBCUT SCH (09:00)
[2021-10-29] MEDS: LISINOPRIL 10MG TABLET PO SCH (09:25)
[2021-10-29] MEDS: FUROSEMIDE 40MG TABLET PO SCH ×2 (09:26→21:12)
[2021-10-29] MEDS: FOLIC ACID 1MG TABLET PO SCH (09:26)
[2021-10-29] MEDS: DIVALPROEX SODIUM 250MG DR TABLET PO SCH ×2 (09:26→18:44)
[2021-10-29] MEDS ORDERED: PANTOPRAZOLE SODIUM 40 MG/VIAL IV SCH (10:15)
[2021-10-29] MEDS ORDERED: NALOXONE HCL 0.4MG/ML VIAL IV PRN (12:00)
[2021-10-29 12:28] LABS: HEMATOCRIT 28.8 % (42.0-52.0); HEMOGLOBIN 9.6 g/dL (14.0-18.0)
[2021-10-29] MEDS: CLOPIDOGREL 75MG TABLET PO SCH (12:54)
[2021-10-29] MEDS: ASPIRIN 81MG EC TABLET PO SCH (12:54)
[2021-10-29] MEDS: SEVELAMER CARBONATE 800 MG TABLET PO SCH ×2 (14:05→18:44)
[2021-10-29] MEDS: DIPHENHYDRAMINE 50MG CAPSULE PO PRN (14:09)
[2021-10-29 16:07] VITALS: BP 157/55
[2021-10-29 16:22] LABS: TOTAL IRON BINDING CAPACITY 186 ug/dL (250-450)
[2021-10-29 16:53] LABS: FOLIC ACID (FOLATE) SERUM 12.8 ng/mL (>5.38)
[2021-10-29] MEDS ORDERED: DIATR MEGLU/DIATRIZOATE SOLN 30ML PO SCH (18:30)
[2021-10-29 20:00] VITALS: BP 146/63
[2021-10-29] MEDS ORDERED: LACTULOSE 20G/30ML UDC PO NR (20:15)
[2021-10-29] MEDS: ATORVASTATIN CALCIUM 40MG TABLET PO SCH (21:12)
[2021-10-30] VITALS: BP 154/55
[2021-10-30 04:00] VITALS: BP 173/67
[2021-10-30] MEDS: CLONIDINE 0.1MG TABLET PO PRN ×2 (04:31→20:52)
[2021-10-30] MEDS: ACETAMINOPHEN 325MG TABLET PO PRN (04:41)
[2021-10-30] MEDS: DIPHENHYDRAMINE 50MG CAPSULE PO PRN ×2 (04:41→18:16)
[2021-10-30 06:49] LABS: BASOPHILS % 1.1 % (0.0-2.0); EOSINOPHILS % 4.1 % (0.0-5.0); HEMATOCRIT. 26.3 % (42.0-52.0); HEMOGLOBIN. 8.9 g/dL (14.0-18.0); LYMPHOCYTES % 23.4 % (20.0-50.0); MEAN CORPUSCULAR HEMOGLOBIN 30.8 pg (28.0-32.0); MEAN CORPUSCULAR VOLUME 91.7 fL (80.0-94.0); MONOCYTES % 12.1 % (2.0-8.0); NEUTROPHILS % 59.3 % (40.0-76.0); PLATELET 163 x1000/uL (130-400); RED BLOOD CELL COUNT 2.87 mill/uL (4.7-6.1); RED CELL DISTRIBUTION WIDTH 13.4 % (11.6-14.6)
[2021-10-30 08:00] VITALS: BP 137/36
[2021-10-30] MEDS ORDERED: DIPHENHYDRAMINE 50MG/ML VIAL IV SCH (10:00)
[2021-10-30 12:00] VITALS: BP 124/54
[2021-10-30] MEDS: PANTOPRAZOLE SODIUM 40 MG/VIAL IV SCH (12:25)
[2021-10-30] MEDS: ENOXAPARIN 30MG/0.3ML SYR SUBCUT SCH (12:25)
[2021-10-30] MEDS: ASPIRIN 81MG EC TABLET PO SCH (12:26)
[2021-10-30] MEDS: FOLIC ACID 1MG TABLET PO SCH (12:26)
[2021-10-30] MEDS: SEVELAMER CARBONATE 800 MG TABLET PO SCH ×2 (12:26→18:09)
[2021-10-30] MEDS: FUROSEMIDE 40MG TABLET PO SCH ×2 (12:26→20:39)
[2021-10-30] MEDS: CLOPIDOGREL 75MG TABLET PO SCH (12:26)
[2021-10-30] MEDS: LISINOPRIL 10MG TABLET PO SCH (12:27)
[2021-10-30] MEDS: DIVALPROEX SODIUM 250MG DR TABLET PO SCH ×2 (12:27→18:09)
[2021-10-30] MEDS ORDERED: DIATR MEGLU/DIATRIZOATE SOLN 30ML PO NR (13:30)
[2021-10-30 14:33] LABS: HEPATITIS B SURFACE ANTIGEN NEGATIVE
[2021-10-30 16:00] VITALS: BP 160/45
[2021-10-30] MEDS ORDERED: LACTULOSE 20G/30ML UDC PO PRN (18:45)
[2021-10-30] MEDS ORDERED: IOHEXOL-300 100 ML BOTTLE ONE (18:50)
[2021-10-30 20:00] VITALS: BP 163/59
[2021-10-30] MEDS: DOCUSATE SODIUM 250MG CAPSULE PO SCH (20:39)
[2021-10-30] MEDS: ATORVASTATIN CALCIUM 40MG TABLET PO SCH (20:39)
[2021-10-30] MEDS: EPOETIN ALFA-EPBX 4,000 UNIT/ML VIAL SUBCUT SCH (20:40)
[2021-10-31] VITALS: BP 120/48
[2021-10-31] MEDS: LACTULOSE 20G/30ML UDC PO SCH ×4 (01:54→18:00)
[2021-10-31] MEDS: DIPHENHYDRAMINE 50MG CAPSULE PO PRN ×2 (01:54→20:42)
[2021-10-31 04:00] VITALS: BP 158/51
[2021-10-31 07:06] LABS: BASOPHILS % 0.8 % (0.0-2.0); EOSINOPHILS % 2.4 % (0.0-5.0); HEMATOCRIT. 24.8 % (42.0-52.0); HEMOGLOBIN. 8.4 g/dL (14.0-18.0); LYMPHOCYTES % 14.5 % (20.0-50.0); MEAN CORPUSCULAR VOLUME 91.8 fL (80.0-94.0); MEAN PLATELET VOLUME 8.3 fl (7.4-10.4); MONOCYTES % 11.1 % (2.0-8.0); NEUTROPHILS % 71.2 % (40.0-76.0); PLATELET 139 x1000/uL (130-400); RED CELL DISTRIBUTION WIDTH 13.4 % (11.6-14.6)
[2021-10-31 08:00] VITALS: BP 186/61
[2021-10-31] MEDS: DOCUSATE SODIUM 250MG CAPSULE PO SCH (08:45)
[2021-10-31] MEDS: PANTOPRAZOLE SODIUM 40 MG/VIAL IV SCH ×2 (08:45→20:42)
[2021-10-31] MEDS: ASPIRIN 81MG EC TABLET PO SCH (08:45)
[2021-10-31] MEDS: FUROSEMIDE 40MG TABLET PO SCH ×2 (08:45→20:42)
[2021-10-31] MEDS: CLOPIDOGREL 75MG TABLET PO SCH (08:45)
[2021-10-31] MEDS: DIVALPROEX SODIUM 250MG DR TABLET PO SCH ×2 (08:45→18:13)
[2021-10-31] MEDS: SEVELAMER CARBONATE 800 MG TABLET PO SCH ×3 (08:45→18:13)
[2021-10-31] MEDS: LISINOPRIL 10MG TABLET PO SCH (08:49)
[2021-10-31] MEDS: FOLIC ACID 1MG TABLET PO SCH (08:49)
[2021-10-31] MEDS ORDERED: DIPHENHYDRAMINE 50MG/ML VIAL IV NR (10:15)
[2021-10-31 12:00] VITALS: BP 136/48
[2021-10-31 16:00] VITALS: BP 170/61
[2021-10-31 20:00] VITALS: BP 155/62
[2021-10-31] MEDS: ATORVASTATIN CALCIUM 40MG TABLET PO SCH (20:42)
[2021-10-31] MEDS: HYDROCODONE/APAP 7.5/325MG 1 TAB TABLET PO PRN (20:43)
[2021-10-31] MEDS ORDERED: EPOETIN ALFA-EPBX 4,000 UNIT/ML VIAL SUBCUT NR (21:00)
[2021-11-01] VITALS: BP 153/56
[2021-11-01 04:00] VITALS: BP 159/61
[2021-11-01] MEDS: LACTULOSE 20G/30ML UDC PO SCH ×5 (06:00→23:47)
[2021-11-01 08:00] VITALS: BP 153/53
[2021-11-01] MEDS: LISINOPRIL 10MG TABLET PO SCH (09:00)
[2021-11-01] MEDS: DOCUSATE SODIUM 250MG CAPSULE PO SCH (09:00)
[2021-11-01] MEDS: PANTOPRAZOLE SODIUM 40 MG/VIAL IV SCH ×2 (09:12→20:01)
[2021-11-01] MEDS: DIPHENHYDRAMINE 50MG/ML VIAL IV PRN ×3 (09:13→22:12)
[2021-11-01] MEDS: ACETAMINOPHEN 325MG TABLET PO PRN ×2 (09:13→12:29)
[2021-11-01] MEDS: FUROSEMIDE 40MG TABLET PO SCH ×2 (09:13→20:01)
[2021-11-01] MEDS: DIVALPROEX SODIUM 250MG DR TABLET PO SCH ×2 (09:13→15:52)
[2021-11-01] MEDS: CLOPIDOGREL 75MG TABLET PO SCH (09:13)
[2021-11-01] MEDS: FOLIC ACID 1MG TABLET PO SCH (09:14)
[2021-11-01] MEDS: ASPIRIN 81MG EC TABLET PO SCH (09:14)
[2021-11-01 12:00] VITALS: BP 153/47
[2021-11-01] MEDS: ONDANSETRON HCL 4MG/2ML INJ IV PRN (12:19)
[2021-11-01] MEDS: SEVELAMER CARBONATE 800 MG TABLET PO SCH ×2 (12:50→17:11)
[2021-11-01] MEDS ORDERED: MORPHINE SULFATE 2 MG/ML CPJ (NOT FOR IM USE) IV NR (15:45)
[2021-11-01] MEDS: METOCLOPRAMIDE HCL 10MG/2ML VIAL IV SCH ×3 (15:51→23:46)
[2021-11-01] MEDS: BISACODYL 5MG TABLET PO SCH ×3 (15:51→23:46)
[2021-11-01] MEDS: SORBITOL 70% SOLN 30ML PO SCH ×3 (15:51→23:46)
[2021-11-01 16:00] VITALS: BP 155/64
[2021-11-01 16:26] LABS: BASOPHILS % 1.2 % (0.0-2.0); EOSINOPHILS % 4.6 % (0.0-5.0); HEMATOCRIT. 25.1 % (42.0-52.0); HEMOGLOBIN. 8.5 g/dL (14.0-18.0); LYMPHOCYTES % 27.5 % (20.0-50.0); MEAN CORPUSCULAR HEMOGLOBIN 30.6 pg (28.0-32.0); MEAN CORPUSCULAR VOLUME 90.2 fL (80.0-94.0); MEAN PLATELET VOLUME 8.2 fl (7.4-10.4); MONOCYTES % 9.4 % (2.0-8.0); NEUTROPHILS % 57.3 % (40.0-76.0); PLATELET 141 x1000/uL (130-400); RED BLOOD CELL COUNT 2.78 mill/uL (4.7-6.1); RED CELL DISTRIBUTION WIDTH 13.5 % (11.6-14.6)
[2021-11-01 20:00] VITALS: BP 166/61
[2021-11-01] MEDS: CLONIDINE 0.1MG TABLET PO PRN (20:01)
[2021-11-01] MEDS: ATORVASTATIN CALCIUM 40MG TABLET PO SCH (20:01)
[2021-11-01] MEDS: HYDROCODONE/APAP 7.5/325MG 1 TAB TABLET PO PRN ×2 (20:09→23:00)
[2021-11-01] MEDS: EPOETIN ALFA-EPBX 4,000 UNIT/ML VIAL SUBCUT SCH (21:13)
[2021-11-02] VITALS: BP 144/52
[2021-11-02 03:42] LABS: PROTHROMBIN TIME 10.8 sec (9.6-11.0)
[2021-11-02 03:51] LABS: BASOPHILS % 1.1 % (0.0-2.0); EOSINOPHILS % 4.3 % (0.0-5.0); HEMATOCRIT. 28.6 % (42.0-52.0); HEMOGLOBIN. 9.8 g/dL (14.0-18.0); LYMPHOCYTES % 24.5 % (20.0-50.0); MEAN CORPUSCULAR HEMOGLOBIN 30.9 pg (28.0-32.0); MEAN CORPUSCULAR VOLUME 90.8 fL (80.0-94.0); MEAN PLATELET VOLUME 8.6 fl (7.4-10.4); MONOCYTES % 9.7 % (2.0-8.0); NEUTROPHILS % 60.4 % (40.0-76.0); PLATELET 147 x1000/uL (130-400); RED BLOOD CELL COUNT 3.16 mill/uL (4.7-6.1); RED CELL DISTRIBUTION WIDTH 13.1 % (11.6-14.6)
[2021-11-02] MEDS: METOCLOPRAMIDE HCL 10MG/2ML VIAL IV SCH (03:53)
[2021-11-02] MEDS: DIPHENHYDRAMINE 50MG/ML VIAL IV PRN ×3 (03:53→22:09)
[2021-11-02] MEDS: BISACODYL 5MG TABLET PO SCH (03:53)
[2021-11-02] MEDS: SORBITOL 70% SOLN 30ML PO SCH (03:53)
[2021-11-02 04:00] VITALS: BP 164/57
[2021-11-02] MEDS: CLONIDINE 0.1MG TABLET PO PRN (04:34)
[2021-11-02] MEDS: LACTULOSE 20G/30ML UDC PO SCH ×5 (05:00→22:09)
[2021-11-02] MEDS: ASPIRIN 81MG EC TABLET PO SCH (08:19)
[2021-11-02] MEDS: CLOPIDOGREL 75MG TABLET PO SCH (08:20)
[2021-11-02 08:45] VITALS: BP 155/40
[2021-11-02] MEDS: DOCUSATE SODIUM 250MG CAPSULE PO SCH (09:00)
[2021-11-02] MEDS: LISINOPRIL 10MG TABLET PO SCH (09:00)
[2021-11-02] MEDS: FUROSEMIDE 40MG TABLET PO SCH ×2 (09:00→22:16)
[2021-11-02] MEDS: DIVALPROEX SODIUM 250MG DR TABLET PO SCH ×2 (09:42→17:00)
[2021-11-02] MEDS: PANTOPRAZOLE SODIUM 40 MG/VIAL IV SCH ×2 (09:43→22:16)
[2021-11-02] MEDS: FOLIC ACID 1MG TABLET PO SCH (09:44)
[2021-11-02] MEDS: SEVELAMER CARBONATE 800 MG TABLET PO SCH ×3 (09:46→18:10)
[2021-11-02 12:00] VITALS: BP 140/35
[2021-11-02] MEDS ORDERED: LIDOCAINE HCL 1% 50ML VIAL (10MG/ML) ONE ×2 (14:04→14:46)
[2021-11-02] MEDS ORDERED: PROPOFOL 200MG/20ML VIAL IV ONE (14:05)
[2021-11-02] MEDS ORDERED: HYDROMORPHONE HCL/PF 2MG/ML CPJ IV PRN (14:30)
[2021-11-02] MEDS ORDERED: MEPERIDINE HCL/PF 25MG/ML CPJ IV PRN (14:30)
[2021-11-02] MEDS ORDERED: LABETALOL 5MG/ML SYR 20 MG/4 ML SYRINGE IV PRN (14:30)
[2021-11-02] MEDS ORDERED: ONDANSETRON HCL 4MG/2ML INJ IV PRN (14:30)
[2021-11-02] MEDS ORDERED: EPHEDRINE SULFATE 50MG/ML VIAL IV NR (15:00)
[2021-11-02 16:30] VITALS: BP 133/31
[2021-11-02 20:00] VITALS: BP_SYST 128; BP_SYST 148; BP_DIAS 50; BP_DIAS 74
[2021-11-02] MEDS: ATORVASTATIN CALCIUM 40MG TABLET PO SCH (22:08)
[2021-11-03] VITALS: BP 135/70
[2021-11-03 04:00] VITALS: BP 135/81
[2021-11-03] MEDS: DIPHENHYDRAMINE 50MG/ML VIAL IV PRN ×3 (05:39→21:44)
[2021-11-03] MEDS: LACTULOSE 20G/30ML UDC PO SCH ×3 (05:39→17:15)
[2021-11-03 06:54] LABS: BASOPHILS % 1.1 % (0.0-2.0); EOSINOPHILS % 2.6 % (0.0-5.0); HEMATOCRIT. 28.1 % (42.0-52.0); HEMOGLOBIN. 9.5 g/dL (14.0-18.0); LYMPHOCYTES % 17.1 % (20.0-50.0); MEAN CORPUSCULAR VOLUME 92.3 fL (80.0-94.0); MEAN PLATELET VOLUME 8.8 fl (7.4-10.4); MONOCYTES % 7.8 % (2.0-8.0); NEUTROPHILS % 71.4 % (40.0-76.0); PLATELET 132 x1000/uL (130-400); RED BLOOD CELL COUNT 3.05 mill/uL (4.7-6.1); RED CELL DISTRIBUTION WIDTH 13.3 % (11.6-14.6)
[2021-11-03 08:23] VITALS: BP 147/30
[2021-11-03] MEDS: CLOPIDOGREL 75MG TABLET PO SCH (08:32)
[2021-11-03] MEDS: ASPIRIN 81MG EC TABLET PO SCH (08:32)
[2021-11-03] MEDS: LISINOPRIL 10MG TABLET PO SCH (08:32)
[2021-11-03] MEDS: FUROSEMIDE 40MG TABLET PO SCH ×2 (08:32→20:59)
[2021-11-03] MEDS: PANTOPRAZOLE SODIUM 40 MG/VIAL IV SCH ×2 (08:32→21:39)
[2021-11-03] MEDS: DIVALPROEX SODIUM 250MG DR TABLET PO SCH ×2 (08:32→17:22)
[2021-11-03] MEDS: FOLIC ACID 1MG TABLET PO SCH (08:32)
[2021-11-03] MEDS: SEVELAMER CARBONATE 800 MG TABLET PO SCH ×3 (08:32→17:25)
[2021-11-03] MEDS: DOCUSATE SODIUM 250MG CAPSULE PO SCH (08:32)
[2021-11-03 12:20] VITALS: BP 121/37
[2021-11-03] MEDS ORDERED: LOPERAMIDE HCL 2MG CAPSULE PO SCH (13:00)
[2021-11-03] MEDS: CLONIDINE 0.1MG TABLET PO PRN (15:44)
[2021-11-03 16:18] VITALS: BP 175/69
[2021-11-03 18:04] LABS: HEPATITIS B SURFACE ANTIGEN NEGATIVE
[2021-11-03] MEDS: ATORVASTATIN CALCIUM 40MG TABLET PO SCH (20:59)
[2021-11-03] MEDS: EPOETIN ALFA-EPBX 4,000 UNIT/ML VIAL SUBCUT SCH (21:00)
[2021-11-03 22:15] VITALS: BP 118/67
[2021-11-04] VITALS (7 sets, daily range): BP systolic 106–177; BP diastolic 50–68
[2021-11-04] MEDS: DIPHENHYDRAMINE 50MG/ML VIAL IV PRN ×3 (05:53→22:00)
[2021-11-04 08:13] LABS: BASOPHILS % 0.9 % (0.0-2.0); EOSINOPHILS % 4.3 % (0.0-5.0); HEMATOCRIT. 26.6 % (42.0-52.0); HEMOGLOBIN. 8.9 g/dL (14.0-18.0); LYMPHOCYTES % 21.3 % (20.0-50.0); MEAN CORPUSCULAR HEMOGLOBIN 30.9 pg (28.0-32.0); MEAN CORPUSCULAR VOLUME 92.2 fL (80.0-94.0); MEAN PLATELET VOLUME 8.9 fl (7.4-10.4); MONOCYTES % 9.2 % (2.0-8.0); NEUTROPHILS % 64.3 % (40.0-76.0); PLATELET 123 x1000/uL (130-400); RED BLOOD CELL COUNT 2.89 mill/uL (4.7-6.1); RED CELL DISTRIBUTION WIDTH 13.3 % (11.6-14.6)
[2021-11-04] MEDS: DOCUSATE SODIUM 250MG CAPSULE PO SCH (09:00)
[2021-11-04] MEDS: DIVALPROEX SODIUM 250MG DR TABLET PO SCH ×2 (09:00→12:04)
[2021-11-04] MEDS: SEVELAMER CARBONATE 800 MG TABLET PO SCH ×3 (09:26→18:16)
[2021-11-04] MEDS: LACTULOSE 20G/30ML UDC PO SCH ×4 (11:13→23:13)
[2021-11-04] MEDS: FOLIC ACID 1MG TABLET PO SCH (12:05)
[2021-11-04] MEDS: CLOPIDOGREL 75MG TABLET PO SCH (12:05)
[2021-11-04] MEDS: PANTOPRAZOLE SODIUM 40 MG/VIAL IV SCH ×2 (12:05→20:45)
[2021-11-04] MEDS: ASPIRIN 81MG EC TABLET PO SCH (12:05)
[2021-11-04] MEDS: FUROSEMIDE 40MG TABLET PO SCH ×2 (12:06→20:45)
[2021-11-04] MEDS: LISINOPRIL 10MG TABLET PO SCH (12:07)
[2021-11-04] MEDS: CLONIDINE 0.1MG TABLET PO PRN (15:33)
[2021-11-04] MEDS: ACETAMINOPHEN 325MG TABLET PO PRN (17:06)
[2021-11-04] MEDS: ATORVASTATIN CALCIUM 40MG TABLET PO SCH (20:45)
[2021-11-05] VITALS: BP 152/55
[2021-11-05 04:00] VITALS: BP 173/64
[2021-11-05] MEDS: LACTULOSE 20G/30ML UDC PO SCH ×3 (05:40→18:00)
[2021-11-05] MEDS: CLONIDINE 0.1MG TABLET PO PRN ×2 (05:41→14:01)
[2021-11-05] MEDS: DIPHENHYDRAMINE 50MG/ML VIAL IV PRN ×2 (05:41→14:01)
[2021-11-05 08:00] VITALS: BP 166/64
[2021-11-05] MEDS: DIVALPROEX SODIUM 250MG DR TABLET PO SCH ×2 (09:23→18:18)
[2021-11-05] MEDS: CLOPIDOGREL 75MG TABLET PO SCH (09:24)
[2021-11-05] MEDS: SEVELAMER CARBONATE 800 MG TABLET PO SCH ×3 (09:24→18:17)
[2021-11-05] MEDS: PANTOPRAZOLE SODIUM 40 MG/VIAL IV SCH (09:24)
[2021-11-05] MEDS: FOLIC ACID 1MG TABLET PO SCH (09:24)
[2021-11-05] MEDS: ASPIRIN 81MG EC TABLET PO SCH (09:25)
[2021-11-05] MEDS: FUROSEMIDE 40MG TABLET PO SCH ×2 (09:25→21:00)
[2021-11-05] MEDS: DOCUSATE SODIUM 250MG CAPSULE PO SCH (09:26)
[2021-11-05] MEDS: LISINOPRIL 10MG TABLET PO SCH (11:29)
[2021-11-05 12:00] VITALS: BP 162/60
[2021-11-05 16:00] VITALS: BP 149/62
[2021-11-05] MEDS: ACETAMINOPHEN 325MG TABLET PO PRN (18:18)
[2021-11-05 20:00] VITALS: BP 143/56
[2021-11-06] VITALS: BP 157/56
[2021-11-06] MEDS: DIPHENHYDRAMINE 50MG/ML VIAL IV PRN ×2 (01:55→09:34)
[2021-11-06] MEDS: ATORVASTATIN CALCIUM 40MG TABLET PO SCH ×2 (02:00→09:18)
[2021-11-06] MEDS: PANTOPRAZOLE SODIUM 40 MG/VIAL IV SCH ×3 (02:00→21:00)
[2021-11-06 04:00] VITALS: BP 172/63
[2021-11-06] MEDS: LACTULOSE 20G/30ML UDC PO SCH ×4 (06:00→17:47)
[2021-11-06] MEDS: CLONIDINE 0.1MG TABLET PO PRN (06:53)
[2021-11-06] MEDS: SEVELAMER CARBONATE 800 MG TABLET PO SCH ×3 (07:50→18:53)
[2021-11-06 08:00] VITALS: BP 162/65
[2021-11-06] MEDS: LISINOPRIL 10MG TABLET PO SCH (09:19)
[2021-11-06] MEDS: DIVALPROEX SODIUM 250MG DR TABLET PO SCH ×2 (09:19→18:53)
[2021-11-06] MEDS: DOCUSATE SODIUM 250MG CAPSULE PO SCH (09:19)
[2021-11-06] MEDS: FUROSEMIDE 40MG TABLET PO SCH ×2 (09:20→21:00)
[2021-11-06] MEDS: CLOPIDOGREL 75MG TABLET PO SCH (09:20)
[2021-11-06] MEDS: FOLIC ACID 1MG TABLET PO SCH (09:20)
[2021-11-06] MEDS: ASPIRIN 81MG EC TABLET PO SCH (09:34)
[2021-11-06 12:00] VITALS: BP 143/67
[2021-11-06 16:00] VITALS: BP 151/51
[2021-11-06 20:00] VITALS: BP 151/62
[2021-11-07] VITALS: BP 138/69
[2021-11-07 04:00] VITALS: BP 164/53
[2021-11-07] MEDS: DIPHENHYDRAMINE 50MG/ML VIAL IV PRN ×3 (05:19→21:57)
[2021-11-07] MEDS: LACTULOSE 20G/30ML UDC PO SCH ×5 (06:00→23:18)
[2021-11-07 07:24] LABS: BASOPHILS % 1.8 % (0.0-2.0); EOSINOPHILS % 3.1 % (0.0-5.0); HEMATOCRIT. 32.6 % (42.0-52.0); HEMOGLOBIN. 10.9 g/dL (14.0-18.0); LYMPHOCYTES % 19.1 % (20.0-50.0); MEAN CORPUSCULAR HEMOGLOBIN 30.5 pg (28.0-32.0); MEAN CORPUSCULAR VOLUME 91.2 fL (80.0-94.0); MEAN PLATELET VOLUME 8.8 fl (7.4-10.4); MONOCYTES % 9.1 % (2.0-8.0); NEUTROPHILS % 66.9 % (40.0-76.0); PLATELET 175 x1000/uL (130-400); RED BLOOD CELL COUNT 3.57 mill/uL (4.7-6.1); RED CELL DISTRIBUTION WIDTH 13.8 % (11.6-14.6)
[2021-11-07 08:00] VITALS: BP 185/60
[2021-11-07] MEDS: PANTOPRAZOLE SODIUM 40 MG/VIAL IV SCH ×2 (08:32→20:52)
[2021-11-07] MEDS: ASPIRIN 81MG EC TABLET PO SCH (08:32)
[2021-11-07] MEDS: SEVELAMER CARBONATE 800 MG TABLET PO SCH ×3 (08:32→17:26)
[2021-11-07] MEDS: DOCUSATE SODIUM 250MG CAPSULE PO SCH (08:32)
[2021-11-07] MEDS: FUROSEMIDE 40MG TABLET PO SCH ×2 (08:33→20:52)
[2021-11-07] MEDS: CLOPIDOGREL 75MG TABLET PO SCH (08:33)
[2021-11-07] MEDS: FOLIC ACID 1MG TABLET PO SCH (08:33)
[2021-11-07] MEDS: DIVALPROEX SODIUM 250MG DR TABLET PO SCH ×2 (08:33→17:27)
[2021-11-07] MEDS: LISINOPRIL 10MG TABLET PO SCH (08:33)
[2021-11-07] MEDS: CLONIDINE 0.1MG TABLET PO PRN (08:53)
[2021-11-07 12:00] VITALS: BP 174/66
[2021-11-07] MEDS: ONDANSETRON HCL 4MG/2ML INJ IV PRN (14:28)
[2021-11-07 15:25] LABS: HEPATITIS B SURFACE ANTIGEN NEGATIVE
[2021-11-07 16:00] VITALS: BP 163/65
[2021-11-07 20:00] VITALS: BP 157/59
[2021-11-07] MEDS: ATORVASTATIN CALCIUM 40MG TABLET PO SCH (20:52)
[2021-11-08] VITALS: BP 153/57
[2021-11-08 04:00] VITALS: BP 157/67
[2021-11-08] MEDS: LACTULOSE 20G/30ML UDC PO SCH ×3 (05:00→17:02)
[2021-11-08] MEDS: DIPHENHYDRAMINE 50MG/ML VIAL IV PRN (06:11)
[2021-11-08 07:50] LABS: BASOPHILS % 1.2 % (0.0-2.0); EOSINOPHILS % 2.4 % (0.0-5.0); HEMATOCRIT. 34.6 % (42.0-52.0); HEMOGLOBIN. 11.7 g/dL (14.0-18.0); LYMPHOCYTES % 27.2 % (20.0-50.0); MEAN CORPUSCULAR HEMOGLOBIN 30.6 pg (28.0-32.0); MEAN CORPUSCULAR VOLUME 90.6 fL (80.0-94.0); MEAN PLATELET VOLUME 8.6 fl (7.4-10.4); MONOCYTES % 12.1 % (2.0-8.0); NEUTROPHILS % 57.1 % (40.0-76.0); PLATELET 185 x1000/uL (130-400); RED BLOOD CELL COUNT 3.82 mill/uL (4.7-6.1); RED CELL DISTRIBUTION WIDTH 13.7 % (11.6-14.6)
[2021-11-08 08:00] VITALS: BP 148/56
[2021-11-08] MEDS: PANTOPRAZOLE SODIUM 40 MG/VIAL IV SCH (08:06)
[2021-11-08] MEDS: SEVELAMER CARBONATE 800 MG TABLET PO SCH ×3 (08:06→17:00)
[2021-11-08] MEDS: DOCUSATE SODIUM 250MG CAPSULE PO SCH (08:07)
[2021-11-08] MEDS: DIVALPROEX SODIUM 250MG DR TABLET PO SCH ×2 (08:07→17:00)
[2021-11-08] MEDS: FUROSEMIDE 40MG TABLET PO SCH ×2 (08:07→21:26)
[2021-11-08] MEDS: LISINOPRIL 10MG TABLET PO SCH (08:07)
[2021-11-08] MEDS: ASPIRIN 81MG EC TABLET PO SCH (08:07)
[2021-11-08] MEDS: CLOPIDOGREL 75MG TABLET PO SCH (08:07)
[2021-11-08] MEDS: FOLIC ACID 1MG TABLET PO SCH (08:07)
[2021-11-08 12:00] VITALS: BP 146/60
[2021-11-08] MEDS: PANTOPRAZOLE 40MG DR TABLET PO SCH (12:10)
[2021-11-08 16:00] VITALS: BP 132/65
[2021-11-08 20:00] VITALS: BP 167/56
[2021-11-08] MEDS: ATORVASTATIN CALCIUM 40MG TABLET PO SCH (21:26)
[2021-11-08] MEDS: CLONIDINE 0.1MG TABLET PO PRN (21:33)
[2021-11-09] VITALS: BP 159/57
[2021-11-09 04:00] VITALS: BP 154/56
[2021-11-09] MEDS: LACTULOSE 20G/30ML UDC PO SCH ×4 (06:00→17:34)
[2021-11-09 07:04] LABS: BASOPHILS % 1.2 % (0.0-2.0); EOSINOPHILS % 2.2 % (0.0-5.0); HEMATOCRIT. 28.6 % (42.0-52.0); HEMOGLOBIN. 9.9 g/dL (14.0-18.0); LYMPHOCYTES % 20.7 % (20.0-50.0); MEAN CORPUSCULAR HEMOGLOBIN 31.3 pg (28.0-32.0); MEAN PLATELET VOLUME 8.5 fl (7.4-10.4); NEUTROPHILS % 63.9 % (40.0-76.0); PLATELET 145 x1000/uL (130-400); RED BLOOD CELL COUNT 3.18 mill/uL (4.7-6.1); RED CELL DISTRIBUTION WIDTH 13.9 % (11.6-14.6)
[2021-11-09 08:00] VITALS: BP 164/51
[2021-11-09] MEDS: DOCUSATE SODIUM 250MG CAPSULE PO SCH (08:13)
[2021-11-09] MEDS: LISINOPRIL 10MG TABLET PO SCH (08:13)
[2021-11-09] MEDS: DIVALPROEX SODIUM 250MG DR TABLET PO SCH ×2 (08:13→17:34)
[2021-11-09] MEDS: CLOPIDOGREL 75MG TABLET PO SCH (08:13)
[2021-11-09] MEDS: SEVELAMER CARBONATE 800 MG TABLET PO SCH ×3 (08:13→17:34)
[2021-11-09] MEDS: FUROSEMIDE 40MG TABLET PO SCH (08:13)
[2021-11-09] MEDS: PANTOPRAZOLE 40MG DR TABLET PO SCH (08:14)
[2021-11-09] MEDS: ASPIRIN 81MG EC TABLET PO SCH (08:14)
[2021-11-09] MEDS: FOLIC ACID 1MG TABLET PO SCH (08:14)
[2021-11-09 12:00] VITALS: BP 182/62
[2021-11-09] MEDS: CLONIDINE 0.1MG TABLET PO PRN (12:44)
[2021-11-09] MEDS: DIPHENHYDRAMINE 50MG/ML VIAL IV PRN (15:20)
[2021-11-09 15:27] VITALS: BP 102/49
[2021-11-09 16:00] VITALS: BP 176/81
== END 2021-11-09 18:15 | disposition home health service (06) | DRG 241 ==
LOC: ER 11:32 → 6WST 14:35 → EDBEDREQ 14:47 → EDBEDREQTM 14:47 → ENRESERV 15:17 → 6EST 11-04 14:48
PROVIDERS: ADMIT Internal Medicine Nephrology; ATTEND Internal Medicine Nephrology
PROC: 5A1D70Z Performance of Urinary Filtration, Intermittent, Less than 6 Hours Per Day (ICD-10-PCS; 2021-10-28)
PROC: 5A1D70Z Performance of Urinary Filtration, Intermittent, Less than 6 Hours Per Day (ICD-10-PCS; 2021-10-30)
PROC: 0DJD8ZZ Inspection of Lower Intestinal Tract, Via Natural or Artificial Opening Endoscopic (ICD-10-PCS; principal; 2021-10-31)
PROC: 5A1D70Z Performance of Urinary Filtration, Intermittent, Less than 6 Hours Per Day (ICD-10-PCS; 2021-10-31)
PROC: 5A1D70Z Performance of Urinary Filtration, Intermittent, Less than 6 Hours Per Day (ICD-10-PCS; 2021-11-02)
PROC: 5A1D70Z Performance of Urinary Filtration, Intermittent, Less than 6 Hours Per Day (ICD-10-PCS; 2021-11-04)
PROC: 5A1D70Z Performance of Urinary Filtration, Intermittent, Less than 6 Hours Per Day (ICD-10-PCS; 2021-11-06)
PROC: 5A1D70Z Performance of Urinary Filtration, Intermittent, Less than 6 Hours Per Day (ICD-10-PCS; 2021-11-07)
PROC: 5A1D70Z Performance of Urinary Filtration, Intermittent, Less than 6 Hours Per Day (ICD-10-PCS; 2021-11-09)
DX: K29.71 Gastritis, unspecified, with bleeding (principal); I13.2 Hypertensive heart and chronic kidney disease with heart failure and with stage 5 chronic kidney disease, or end stage renal disease; N18.6 End stage renal disease; D62 Acute posthemorrhagic anemia; E11.22 Type 2 diabetes mellitus with diabetic chronic kidney disease; D63.1 Anemia in chronic kidney disease; Z20.822 Contact with and (suspected) exposure to COVID-19; E78.5 Hyperlipidemia, unspecified; I25.10 Atherosclerotic heart disease of native coronary artery without angina pectoris; K31.84 Gastroparesis; K44.9 Diaphragmatic hernia without obstruction or gangrene; E11.43 Type 2 diabetes mellitus with diabetic autonomic (poly)neuropathy; I44.0 Atrioventricular block, first degree; E11.51 Type 2 diabetes mellitus with diabetic peripheral angiopathy without gangrene; D50.9 Iron deficiency anemia, unspecified; I34.0 Nonrheumatic mitral (valve) insufficiency; I07.1 Rheumatic tricuspid insufficiency; K21.9 Gastro-esophageal reflux disease without esophagitis; I50.9 Heart failure, unspecified; I25.2 Old myocardial infarction; Z79.02 Long term (current) use of antithrombotics/antiplatelets; Z79.899 Other long term (current) drug therapy; Z86.73 Personal history of transient ischemic attack (TIA), and cerebral infarction without residual deficits; Z89.512 Acquired absence of left leg below knee; Z89.511 Acquired absence of right leg below knee; Z95.5 Presence of coronary angioplasty implant and graft; Z87.891 Personal history of nicotine dependence; Z99.2 Dependence on renal dialysis; Z79.4 Long term (current) use of insulin; Z87.19 Personal history of other diseases of the digestive system
CPT/HCPCS: 36415; 71045; 74176; 74177; 76700; 80048; 80053; 82607; 82728; 82746; 82962; 83036; 83540; 83550; 84484; 85014; 85018; 85025; 85044; 86705; 86709; 86803; 86850; 86900; 87340; 87426; 93005; 97161; 97166; 99285; C1893; C9113; J0885; J1170; J1200; J1650; J2270; J2405; J2704; J2765; J3490; Q0163; Q9963; Q9967